=== PATIENT | male | born 1965 | race Caucasian/White ===

== ENCOUNTER → 2022-01-19 | Outpatient (CLI) | payer BC ==
[~2022-01-19] MED LIST: CIPR500 PO; CLIN300 PO; CYCL10 PO; HYDACE5 PO; IBUP600 PO; KETO10 PO; METO10 PO; METR500 PO; MORP15ER PO; MORP60ER PO; ONDA4 PO; OXYACE5T PO; OXYC5 PO; PROM25 PO; Protonix40 MG PO; RXOXYACE PO; RXPROM25 PO
[2022-01-19 10:33] LABS: BASOPHILS ABSOLUTE AUTO 0.01 K/mm3 (0.00-0.23); BASOPHILS PERCENT AUTO 0 % (0-2); EOSINOPHILS ABSOLUTE AUTO 0.06 K/mm3 (0.00-0.68); EOSINOPHILS PERCENT AUTO 1 % (0-6); Hematocrit 46.2 % (37.0-53.0); Hemoglobin 16.3 g/dL (13.5-17.5); IMMATURE GRAN ABSOLUTE AUTO 0.04 K/mm3 (0.00-0.10); IMMATURE GRAN PERCENT AUTO 1 % (0-1); LYMPHOCYTES PERCENT AUTO 22 % (21-46); MONOCYTES ABSOLUTE AUTO 0.34 K/mm3 (0.16-1.47); MONOCYTES PERCENT AUTO 7 % (4-13); Mean Corpuscular HGB 30.4 pg (26.0-34.0); Mean Corpuscular HGB Conc 35.3 g/dL (31.5-36.5); Mean Corpuscular Volume 86 fL (80-100); Mean Platelet Volume 11.4 fL (9.1-12.4); NEUTROPHILS ABSOLUTE AUTO 3.48 K/mm3 (1.96-9.15); NEUTROPHILS PERCENT AUTO 69 % (41-73); Platelet Count 141 K/mm3 (150-400); RDW Coefficient Variation 12.7 % (11.7-14.2); Red Blood Cell Count 5.37 M/mm3 (4.30-5.90); White Blood Cell Count 5.03 K/mm3 (4.00-11.30)
[2022-01-19 10:37] LABS: Albumin, Blood 3.5 g/dL (3.4-5.0); Albumin/Globulin Ratio 0.9 (0.8-1.8); Bilirubin, Total 1.1 mg/dL (0.1-1.0); Bun/Creatinine Ratio 14.7 (12.0-20.0); Calcium, Blood 8.5 mg/dL (8.5-10.1); Creatinine, Blood 1.02 mg/dL (0.60-1.20); Globulin, Blood 3.9 g/dL (2.2-4.0); Potassium, Blood 4.7 mmol/L (3.5-5.5); Total Protein, Blood 7.4 g/dL (6.4-8.2)
== END ==
LOC: LAB SHORT 10:21 → LAB 10:21
PROVIDERS: Physician Assistant Medical
DX: E11.9 Type 2 diabetes mellitus without complications (principal)
CPT/HCPCS: 80053; 83036; 85025

== ENCOUNTER 2024-07-20 14:23 | Emergency (ER) | payer BC ==
[~2024-07-20] VITALS: Ht 177.8 cm; Wt 120.2 kg
[2024-07-20 15:38] LABS: Influenza A, PCR NEGATIVE (NEGATIVE); Influenza B, PCR NEGATIVE (NEGATIVE); Resp Syncytial Virus, PCR NEGATIVE (NEGATIVE); SARS-Cov-2 (COVID-19) PCR, MMC NEGATIVE (NEGATIVE)
[2024-07-20] MEDS ORDERED: Diazepam 5 MG Tab PO ONE (17:15)
[2024-07-20 17:41] VITALS: BP 151/80
== END 2024-07-20 17:41 | disposition home or self-care (01) ==
LOC: ER 14:23
PROVIDERS: Physician Assistant
DX: E87.20 Acidosis, unspecified (principal); F10.90 Alcohol use, unspecified, uncomplicated; F17.210 Nicotine dependence, cigarettes, uncomplicated; Z86.19 Personal history of other infectious and parasitic diseases; Z79.84 Long term (current) use of oral hypoglycemic drugs; Z79.899 Other long term (current) drug therapy
CPT/HCPCS: 0241U; 83605; 99284-25; A9270

== ENCOUNTER → 2024-07-20 | Outpatient (CLI) | payer BC ==
[~2024-07-20] MED LIST changes: +HYDCHL50; +METF500; +[UNRECOGNIZED DRUG - OTHER]
[2024-07-20 11:50] LABS: BASOPHILS ABSOLUTE AUTO 0.01 K/mm3 (0.00-0.23); BASOPHILS PERCENT AUTO 0 % (0-2); EOSINOPHILS ABSOLUTE AUTO 0.04 K/mm3 (0.00-0.68); EOSINOPHILS PERCENT AUTO 1 % (0-6); Hematocrit 46.5 % (37.0-53.0); Hemoglobin 15.8 g/dL (13.5-17.5); IMMATURE GRAN ABSOLUTE AUTO 0.02 K/mm3 (0.00-0.10); IMMATURE GRAN PERCENT AUTO 1 % (0-1); LYMPHOCYTES ABSOLUTE AUTO 1.06 K/mm3 (0.84-5.20); LYMPHOCYTES PERCENT AUTO 35 % (21-46); MONOCYTES ABSOLUTE AUTO 0.24 K/mm3 (0.16-1.47); MONOCYTES PERCENT AUTO 8 % (4-13); Mean Corpuscular HGB 28.9 pg (26.0-34.0); Mean Corpuscular Volume 85 fL (80-100); NEUTROPHILS ABSOLUTE AUTO 1.69 K/mm3 (1.96-9.15); NEUTROPHILS PERCENT AUTO 55 % (41-73); RDW Coefficient Variation 14.1 % (11.7-14.2); RDW Standard Deviation 43.8 fL (35.1-46.3); Red Blood Cell Count 5.47 M/mm3 (4.30-5.90); White Blood Cell Count 3.06 K/mm3 (4.00-11.30)
[2024-07-20 12:03] LABS: Albumin, Blood 4.4 g/dL (3.4-5.0); Bilirubin, Total 1.6 mg/dL (0.1-1.0); Bun/Creatinine Ratio 10.5 (12.0-20.0); Calcium, Blood 8.7 mg/dL (8.5-10.1); Creatinine, Blood 0.86 mg/dL (0.60-1.20); Globulin, Blood 4.2 g/dL (2.2-4.0); Potassium, Blood 3.8 mmol/L (3.5-5.5); Total Protein, Blood 8.6 g/dL (6.4-8.2)
[2024-07-20 12:09] LABS: Mean Platelet Volume 10.3 fL (9.1-12.4)
== END | disposition home or self-care (01) ==
LOC: LAB SHORT 11:46 → LAB 11:46
PROVIDERS: Physician Assistant
DX: R11.2 Nausea with vomiting, unspecified (principal)
CPT/HCPCS: 80053; 82248; 83605; 83690; 85025

== ENCOUNTER 2024-07-29 15:49 | Inpatient (IN) | payer BC ==
[~2024-07-29] VITALS: Ht 177.8 cm; Wt 115.5 kg
[2024-07-29 16:37] LABS: BASOPHILS ABSOLUTE AUTO 0.02 K/mm3 (0.00-0.23); BASOPHILS PERCENT AUTO 1 % (0-2); EOSINOPHILS ABSOLUTE AUTO 0.01 K/mm3 (0.00-0.68); EOSINOPHILS PERCENT AUTO 0 % (0-6); Hematocrit 44.3 % (37.0-53.0); Hemoglobin 15.1 g/dL (13.5-17.5); IMMATURE GRAN ABSOLUTE AUTO 0.01 K/mm3 (0.00-0.10); IMMATURE GRAN PERCENT AUTO 0 % (0-1); LYMPHOCYTES ABSOLUTE AUTO 1.22 K/mm3 (0.84-5.20); LYMPHOCYTES PERCENT AUTO 42 % (21-46); MONOCYTES ABSOLUTE AUTO 0.37 K/mm3 (0.16-1.47); MONOCYTES PERCENT AUTO 13 % (4-13); Mean Corpuscular HGB 29.4 pg (26.0-34.0); Mean Corpuscular HGB Conc 34.1 g/dL (31.5-36.5); Mean Corpuscular Volume 86 fL (80-100); NEUTROPHILS ABSOLUTE AUTO 1.31 K/mm3 (1.96-9.15); NEUTROPHILS PERCENT AUTO 45 % (41-73); RDW Coefficient Variation 14.2 % (11.7-14.2); Red Blood Cell Count 5.14 M/mm3 (4.30-5.90); White Blood Cell Count 2.94 K/mm3 (4.00-11.30)
[2024-07-29 17:04] LABS: Albumin, Blood 4.1 g/dL (3.4-5.0); Bilirubin, Total 1.1 mg/dL (0.1-1.0); Calcium, Blood 9.1 mg/dL (8.5-10.1); Creatinine, Blood 0.67 mg/dL (0.60-1.20); Globulin, Blood 4.1 g/dL (2.2-4.0); Potassium, Blood 3.9 mmol/L (3.5-5.5); Total Protein, Blood 8.2 g/dL (6.4-8.2)
[2024-07-29] MEDS ORDERED: PHENobarbitaL sodium 130 MG/ML VIAL IV ONE ×3 (17:30→19:50)
[2024-07-29] MEDS ORDERED: Lactated Ringer's 1,000 ML IV ONE (17:35)
[2024-07-29] MEDS ORDERED: Ondansetron HCl 2 MG / ML 2ML Vial IV ONE (17:35)
[2024-07-29] MEDS ORDERED: ChlordiazePOXIDE 25 MG Cap PO PRN ×2 (21:05→21:10)
[2024-07-29] MEDS ORDERED: Ondansetron HCl 2 MG / ML 2ML Vial IV PRN (21:05)
[2024-07-29] MEDS ORDERED: LORazepam 2 MG/ML 1ML Injection IV PRN ×2 (21:10)
[2024-07-29] MEDS ORDERED: FLU VACC TS2024-25(6MOS UP)/PF 45 MCG/0.5 ML SYRINGE IM ONE (21:10)
[2024-07-29] MEDS ORDERED: Lactated Ringer's 1,000 ML IV SCH (21:10)
[2024-07-29 21:15] LABS: Magnesium, Blood 1.6 mg/dL (1.6-2.4)
[2024-07-29 22:23] VITALS: BP 167/115
[2024-07-29 23:32] VITALS: BP 152/96
--- NOTE | 2024-07-29 23:44 | NUR ---
ADMISSION NOTE. PT ARRIVED ON UNIT AT ABOUT ~2215. AOX4, PLEASANT, COOPERATIVE WITH CARE. SOMEWHAT ANXIOUS. ADMITTED FOR ALCOHOL WITHDRAWAL. DENIES PAIN. CIWA 8 ON ADMISSION, ADMINISTERED 25 MG LIBRIUM. ADMINISTERED FLU SHOT PER PT REQUEST. VITALS STABLE. MAINTAINING ADEQUATE SATURATION ON 2 L O2 VIA NC. SBA TRANSFER TO BATHROOM. ADMISSION PROCESS COMPLETED PER PROTOCOL. RUNNING SINUS TACH ON TELE. BED ALARM ACTIVE FOR SAFETY, EDUCATED VENEER DRIER LIGHT USE. BED LOCKED IN LOWEST POSITION. CALL LIGHT LEFT WITHIN REACH. CONTINUING TO MONITOR.
[2024-07-30] VITALS (7 sets, daily range): BP systolic 143–166; BP diastolic 84–102
[2024-07-30] MEDS ORDERED: ChlordiazePOXIDE 25 MG Cap PO PRN (01:00)
[2024-07-30 03:59] LABS: Hemoglobin 13.9 g/dL (13.5-17.5); Mean Corpuscular HGB 29.6 pg (26.0-34.0); Mean Corpuscular HGB Conc 33.9 g/dL (31.5-36.5); Mean Corpuscular Volume 87 fL (80-100); Mean Platelet Volume 10.9 fL (9.1-12.4); Platelet Count 61 K/mm3 (150-400); RDW Coefficient Variation 14.3 % (11.7-14.2); RDW Standard Deviation 45.5 fL (35.1-46.3); Red Blood Cell Count 4.69 M/mm3 (4.30-5.90); White Blood Cell Count 2.35 K/mm3 (4.00-11.30)
[2024-07-30 04:18] LABS: Magnesium, Blood 1.5 mg/dL (1.6-2.4)
[2024-07-30 04:19] LABS: Albumin, Blood 3.9 g/dL (3.4-5.0); Albumin/Globulin Ratio 1.1 (0.8-1.8); Bilirubin, Total 1.7 mg/dL (0.1-1.0); Bun/Creatinine Ratio 21.6 (12.0-20.0); Calcium, Blood 8.6 mg/dL (8.5-10.1); Creatinine, Blood 0.65 mg/dL (0.60-1.20); Globulin, Blood 3.5 g/dL (2.2-4.0); Total Protein, Blood 7.4 g/dL (6.4-8.2)
--- NOTE | 2024-07-30 05:29 | NUR ---
SPOKE WITH DR. ADAME REGARDING LOW MAGNESIUM ON MORNING LABS. ALSO NOTIFIED OF DROP IN SODIUM. WENDI ORDERED 2 G MAGNESIUM IV NOW. ORDER INPUT AWAITING VERIFICATION.
[2024-07-30] MEDS ORDERED: Magnesium Sulf 2 GM/Water 50ML 50 ML IV ONE (05:30)
--- NOTE | 2024-07-30 06:04 | NUR ---
SHIFT SUMMARY. SHIFT HAS BEEN UNEVENTFUL OVERALL. PT AOX4, PLEASANT, COOPERATIVE WITH CARE. CIWAS HAVE BEEN =<8 THROUGHOUT SHIFT THUS FAR. HAS DENIED PAIN THROUGHOUT SHIFT. LR RUNNING SINCE ARRIVAL. HAVE MEDICATED TWICE PER CIWA PROTOCOL THUS FAR. STEADY 1PA TRANSFER TO CHAIR AND BACK TO BED. IMPULSIVE AT TIMES BUT ONLY VERY SPORADICALLY AND MORE CONSISTENTLY CALLS APPROPRIATELY FOR ASSISTANCE. BED LOCKED IN LOWEST POSITION. CALL LIGHT LEFT WITHIN REACH. CONTINUING TO MONITOR.
[2024-07-30] MEDS ORDERED: Folic Acid 1 MG TAB PO SCH (09:00)
[2024-07-30] MEDS ORDERED: Enoxaparin 40 MG/0.4 ML SYR SC SCH (09:00)
[2024-07-30] MEDS ORDERED: Multivitamins 1 Tab PO SCH (09:00)
[2024-07-30] MEDS ORDERED: Thiamine HCl 100 MG Tab PO SCH (09:00)
--- NOTE | 2024-07-30 10:34 | NUR ---
am note this rn assumed care at 0700. vital signs stable. tele sinus rhythm sinus tach 90s-100s. spo2 >90% on 2l nc. patient since then has been titrated to room air and is tolerating well with spo2 >90%. patient is alert and orineted x4. neuro is intact. ciwa score 8 and 11 this monring. patient is able to make needs known and uses call light appropriately. denies pain, chest pain/pressure or shortness of breath. see shift assessment for further detials. Md Hernandezan in to see patient and discuss plan of care. plan to continue to monitor for ciwa and medicated as needed.
[2024-07-30] MEDS ORDERED: Losartan Potassium 25 MG Tab PO SCH (15:35)
[2024-07-30] MEDS ORDERED: Insulin Human Lispro 100 Units/ML 3ML Syringe SC SCH (16:30)
--- NOTE | 2024-07-30 17:34 | NUR ---
shift summary patient blood pressure hypertensive and started on losartan. patient neuro remains unchanged. ciwa range from 6-11. patient able to ambulate to the bathroom with a standby assist. no acute changes this shift. plan remains up to date
[2024-07-30] MEDS ORDERED: Omeprazole 20 MG CapCR PO SCH ×2 (18:20→18:35)
--- NOTE | 2024-07-30 18:50 | NUR ---
DENTURES dentures soaking in denture cup on bedside table, both upper and lower, with patient label on denture cup lid.
[2024-07-31 03:24] VITALS: BP 134/99
[2024-07-31 04:26] LABS: BASOPHILS ABSOLUTE AUTO 0.01 K/mm3 (0.00-0.23); BASOPHILS PERCENT AUTO 1 % (0-2); EOSINOPHILS ABSOLUTE AUTO 0.03 K/mm3 (0.00-0.68); EOSINOPHILS PERCENT AUTO 2 % (0-6); Hematocrit 40.8 % (37.0-53.0); Hemoglobin 13.3 g/dL (13.5-17.5); IMMATURE GRAN ABSOLUTE AUTO 0.01 K/mm3 (0.00-0.10); IMMATURE GRAN PERCENT AUTO 1 % (0-1); LYMPHOCYTES ABSOLUTE AUTO 0.56 K/mm3 (0.84-5.20); LYMPHOCYTES PERCENT AUTO 29 % (21-46); MONOCYTES ABSOLUTE AUTO 0.28 K/mm3 (0.16-1.47); MONOCYTES PERCENT AUTO 14 % (4-13); Mean Corpuscular HGB 28.9 pg (26.0-34.0); Mean Corpuscular HGB Conc 32.6 g/dL (31.5-36.5); Mean Corpuscular Volume 89 fL (80-100); NEUTROPHILS ABSOLUTE AUTO 1.07 K/mm3 (1.96-9.15); NEUTROPHILS PERCENT AUTO 55 % (41-73); RDW Coefficient Variation 13.9 % (11.7-14.2); RDW Standard Deviation 44.9 fL (35.1-46.3); White Blood Cell Count 1.96 K/mm3 (4.00-11.30)
[2024-07-31 04:31] LABS: Platelet Count 50 K/mm3 (150-400)
--- NOTE | 2024-07-31 04:35 | NUR ---
SHIFT SUMMARY. SHIFT HAS GONE WELL OVERALL. PT HAS BEEN AOX4, PLEASANT, COOPERATIVE, REDIRECTABLE THROUGHOUT SHIFT. OFTEN IMPULSIVE OOB, MORESO THAN PREVIOUS SHIFT WITH THIS RN BUT REMAINS VERY REDIRECTABLE AND COOPERATIVE. URINE OUTPUT CONSISTENT, CHARTED APPROPRIATELY. DENIED PAIN THROUGHOUT SHIFT OUTSIDE OF HEADACHE ASSOCIATED WITH WITHDRAWALS. MEDICATED PER CIWA PROTOCL PRN. CONTINUES TO RUN SINUS ON TELE. MAINTAINS ADEQUATE SATURATION ON ROOM AIR WHILE AWAKE, 2 L O2 VIA NC WHILE SLEEPING. CIWAs HAVE RANGED BETWEEN 5-13 THROUGHOUT SHIFT. BED LOCKED IN LOWEST POSITION. CALL LIGHT LEFT WITHIN REACH. CONTINUING TO MONITOR.
[2024-07-31 04:48] LABS: Alanine Aminotransfer (ALT/SGP 99 U/L (12-78); Albumin, Blood 3.6 g/dL (3.4-5.0); Alk Phos 90 U/L (50-136); Anion Gap 7 mmol/L (3-11); Aspartate Aminotrans (AST/SGOT 162 U/L (12-37); Bilirubin, Total 1.3 mg/dL (0.1-1.0); Blood Urea Nitrogen 11 mg/dL (8-24); Bun/Creatinine Ratio 17.4 (12.0-20.0); CHOL/HDL RATIO 3.2; CO2, Blood 32 mmol/L (21-32); Chloride, Blood 100 mmol/L (98-108); Cholesterol 195 mg/dL (50-200); Creatinine, Blood 0.63 mg/dL (0.60-1.20); Globulin, Blood 3.6 g/dL (2.2-4.0); Glomerular Filtration Rate 108 (60-); Glucose, Blood 124 mg/dL (70-99); HDL Cholesterol 61 mg/dL (>39); LDL/HDL RATIO 1.8; Low Density Lipoprotein Chol 107 mg/dL (0-110); Potassium, Blood 4.1 mmol/L (3.5-5.5); Sodium, Blood 135 mmol/L (136-145); Total Protein, Blood 7.2 g/dL (6.4-8.2); Triglycerides 133 mg/dL (30-160); Very Low Density Lipoprot Chol 26 mg/dL (6-32)
[2024-07-31 08:42] VITALS: BP 148/100
[2024-07-31] MEDS ORDERED: Losartan Potassium 25 MG Tab PO SCH (09:00)
--- NOTE | 2024-07-31 10:06 | NUR ---
am note this rn assumed care at 0700. vital signs stable. spo2 >90% on room air. patient is alert and oriented x4. neuro is intact. ciwa is 4 this morning. patient is able to make needs known. patient denies pain, chest pain/pressure or shortness of breath. see shift assessment for further detials. patient had a shower this morning and linen changed. md deanan in to see patient and patient switched medical status with tele.
[2024-07-31] MEDS ORDERED: Nicotine 14 MG PATCH TOP SCH (12:15)
--- NOTE | 2024-07-31 12:30 | NUR ---
UPDATE patient is medical status with tele and patient will be moving to room 361. this rn called Scarlett his friend and updated her on patient new room.
--- NOTE | 2024-07-31 12:41 | NUR ---
update-transfer of care this rn gave report to xochitl bajwa on medical floor. patient is moving to room 362. patient left with all belongings and in no distress. patient recent ciwa 8. patient has nicotine patch on left shoulder that was put on this afternoon. no acute changes since previous notes. plan remains up to date.
--- NOTE | 2024-07-31 12:45 | NUR ---
update to friend this rn called roma to update on room change to 362.
[2024-07-31 12:56] VITALS: BP 133/87
--- NOTE | 2024-07-31 12:59 | NUR ---
TRANSFER NOTE: PATIENT ARRIVED THE UNIT VIA WHEELCHAIR AT 1250; WAS ABLE TO SELF TRANSFER TO THE BED; PATIENT SETTLED IN ROOM, CALL LIGHT PROVIDED, VITALS OBTAINED, IV ASSESSED. NO SIGNS OR SYMPTOMS OF DISTRESS, PLAN OF CARE ONGOING.
[2024-07-31 16:04] VITALS: BP 155/102
[2024-07-31 16:57] VITALS: BP 142/96
--- NOTE | 2024-07-31 18:20 | NUR ---
SHIFT SUMMARY: PATIENT HAS BEEN PLEASANT AND COOPERATIVE WITH CARE. HIS CIWAS 9 FOR ME SINCE BEING ON THE FLOOR; MEDICATING NEEDED. PATIENT WENT ON A WALK WITH FAMILY TODAY WITH THE FWW. EDUCATED ON THE IMPORTANCE OF STAYING IN THE HOSPITAL WHILE GOING THROUGH ALCOHOL WITHDRAWAL; PATIENT VOICES UNDERSTANDING. HE IS IN BED, ALERT, CALL LIGHT WITHIN REACH, NO SIGNS OR SYMTOMS OF DISTRESS, OR EVENTS ON TELE, PLAN OF CARE ONGOING.
[2024-07-31 20:06] VITALS: BP 136/86
[2024-08-01 00:25] VITALS: BP 135/97
[2024-08-01 04:35] VITALS: BP 131/105
--- NOTE | 2024-08-01 05:05 | NUR ---
SHIFT SUMMARY NOC PT A/O X 4. PLEASANT AND COOPERATIVE WITH CARE. VSS. HS CBG 211 CNI. PT HAD 2 CIWA SCORES 9 AND 10 THAT PT RECEIVED LIBRIUM 50 MG WHICH HELPED TO RELIEVE ETOH WD SYMPTOMS. PT ON TELE SINUS RHYTHM 80'S. PT IS WAITING FOR ENROLLMENT IN ADAPT FOR DISCHARGE. PT CURRENTLY RESTING WITH BED IN LOWEST POSITION, AND CALL LIGHT WITHIN REACH.
[2024-08-01 05:18] LABS: BASOPHILS ABSOLUTE AUTO 0.01 K/mm3 (0.00-0.23); BASOPHILS PERCENT AUTO 1 % (0-2); EOSINOPHILS ABSOLUTE AUTO 0.04 K/mm3 (0.00-0.68); EOSINOPHILS PERCENT AUTO 2 % (0-6); Hematocrit 39.2 % (37.0-53.0); Hemoglobin 12.8 g/dL (13.5-17.5); IMMATURE GRAN ABSOLUTE AUTO 0.01 K/mm3 (0.00-0.10); IMMATURE GRAN PERCENT AUTO 1 % (0-1); LYMPHOCYTES ABSOLUTE AUTO 0.45 K/mm3 (0.84-5.20); LYMPHOCYTES PERCENT AUTO 24 % (21-46); MONOCYTES ABSOLUTE AUTO 0.23 K/mm3 (0.16-1.47); MONOCYTES PERCENT AUTO 12 % (4-13); Mean Corpuscular HGB 29.2 pg (26.0-34.0); Mean Corpuscular HGB Conc 32.7 g/dL (31.5-36.5); Mean Corpuscular Volume 90 fL (80-100); Mean Platelet Volume 12.2 fL (9.1-12.4); NEUTROPHILS ABSOLUTE AUTO 1.14 K/mm3 (1.96-9.15); NEUTROPHILS PERCENT AUTO 61 % (41-73); Platelet Count 51 K/mm3 (150-400); RDW Coefficient Variation 13.6 % (11.7-14.2); RDW Standard Deviation 44.8 fL (35.1-46.3); Red Blood Cell Count 4.38 M/mm3 (4.30-5.90); White Blood Cell Count 1.88 K/mm3 (4.00-11.30)
[2024-08-01 05:45] LABS: Bun/Creatinine Ratio 15.3 (12.0-20.0); Calcium, Blood 9.4 mg/dL (8.5-10.1); Creatinine, Blood 0.72 mg/dL (0.60-1.20); Potassium, Blood 3.8 mmol/L (3.5-5.5)
[2024-08-01 07:38] VITALS: BP 133/95
[2024-08-01 12:12] VITALS: BP 109/87
[2024-08-01 16:28] VITALS: BP 128/82
--- NOTE | 2024-08-01 18:24 | NUR ---
SUMMARY- AAOX4 THIS SHIFT. CIWA= 8, 10, 13 THIS SHIFT. PT WALKED THE HALLS THIS SHIFT WITH WALKER. GOOD APPETITE. NO COMPLAINTS OF PAIN. PT ON RA. SBA.
[2024-08-01 20:12] VITALS: BP 124/81
[2024-08-01] MEDS ORDERED: Calcium Carbonate 500 MG Tab Chew PO PRN (20:20)
[2024-08-02] VITALS (8 sets, daily range): BP systolic 116–138; BP diastolic 73–96
--- NOTE | 2024-08-02 02:30 | NUR ---
WAS IN ROOM 363 HELPING PLATFORM ARCHITECT GET TEMP ON PT AND HEARD CRASH COME FROM ROOM 362, PT FOUND DOWN ON GROUND FROM UNWITNESSED FALL. PT DENIES HITTING HEAD AND HAS BRUISES BETWEEN SHOULDER BLADES AND ON R HIP. UNWITNESSED FALL NEURO PROTOCOL INTITIAED. VSS. HOSPITALIST NOTIFIED AND NO IMAGING ORDERED AND ORDERS TO CONTINUE MONITORING PT PER FALL PROTOCOL.
[2024-08-02 05:25] LABS: BASOPHILS ABSOLUTE AUTO 0.02 K/mm3 (0.00-0.23); BASOPHILS PERCENT AUTO 1 % (0-2); EOSINOPHILS ABSOLUTE AUTO 0.04 K/mm3 (0.00-0.68); EOSINOPHILS PERCENT AUTO 1 % (0-6); Hematocrit 39.7 % (37.0-53.0); Hemoglobin 13.2 g/dL (13.5-17.5); IMMATURE GRAN ABSOLUTE AUTO 0.01 K/mm3 (0.00-0.10); IMMATURE GRAN PERCENT AUTO 0 % (0-1); LYMPHOCYTES ABSOLUTE AUTO 0.63 K/mm3 (0.84-5.20); LYMPHOCYTES PERCENT AUTO 22 % (21-46); MONOCYTES ABSOLUTE AUTO 0.39 K/mm3 (0.16-1.47); MONOCYTES PERCENT AUTO 14 % (4-13); Mean Corpuscular HGB 29.6 pg (26.0-34.0); Mean Corpuscular HGB Conc 33.2 g/dL (31.5-36.5); Mean Corpuscular Volume 89 fL (80-100); Mean Platelet Volume 11.2 fL (9.1-12.4); NEUTROPHILS ABSOLUTE AUTO 1.75 K/mm3 (1.96-9.15); NEUTROPHILS PERCENT AUTO 62 % (41-73); Platelet Count 67 K/mm3 (150-400); RDW Coefficient Variation 13.7 % (11.7-14.2); Red Blood Cell Count 4.46 M/mm3 (4.30-5.90); White Blood Cell Count 2.84 K/mm3 (4.00-11.30)
[2024-08-02 05:57] LABS: Albumin, Blood 3.5 g/dL (3.4-5.0); Bilirubin, Total 1.3 mg/dL (0.1-1.0); Bun/Creatinine Ratio 22.2 (12.0-20.0); Calcium, Blood 9.5 mg/dL (8.5-10.1); Creatinine, Blood 0.68 mg/dL (0.60-1.20); Globulin, Blood 3.6 g/dL (2.2-4.0); Potassium, Blood 3.7 mmol/L (3.5-5.5); Total Protein, Blood 7.1 g/dL (6.4-8.2)
--- NOTE | 2024-08-02 06:09 | NUR ---
SHIFT SUMMARY NOC PT A/O X 3. PLEASANT AND COOPERTIVE WITH CARE. VSS. CIWA 11 @ 1999 AND GIVEN LIBRIUM, OTHER CIWA <5. PT HAD UNWITNESSED FALL @ 129, PT ASSESSED AND DENIED HITTING HEAD. NEURO CHECKS/VSS. HOSPITALIST NOTIFIED AND NO ADDITIONAL ORDERS GIVEN BESIDES TO CONTINUE NEURO POST FALL PROTOCOL. PT SUSTAINED BRUISING TO R HIP, AND BETWEEN SHOULDER BLADES. PT NOW HAS BED ALARM IN PLACE AND USING CALL LIGHT FOR ASSISTENCE WHEN GETTING UP. PT ON TELE SINUS TACH IN LOW 100'S. PT CURRENTLY RESTING WITH BED ALARM ON, BED IN LOWEST POSITION, AND CALL LIGHT WITHIN REACH.
--- NOTE | 2024-08-02 18:26 | NUR ---
SUMMARY- PT AAOX4. SLOW TO RESPOND. PT MEDICATED TWICE THIS SHIFT FOR CIWA SCORES. X1 ASSIST. NO COMPLAINTS OF PAIN. PT RETAINING THIS SHIFT. BLADDER SCAN SHOWED 758ML, STRAIGHT CATHED PT; 850ML DRAINED. PT ON RA.
[2024-08-03 00:20] VITALS: BP 105/67
[2024-08-03 04:37] LABS: Hematocrit 40.6 % (37.0-53.0); Hemoglobin 13.6 g/dL (13.5-17.5); Mean Corpuscular HGB 29.8 pg (26.0-34.0); Mean Corpuscular HGB Conc 33.5 g/dL (31.5-36.5); Mean Corpuscular Volume 89 fL (80-100); Mean Platelet Volume 11.3 fL (9.1-12.4); Platelet Count 93 K/mm3 (150-400); RDW Coefficient Variation 13.9 % (11.7-14.2); RDW Standard Deviation 45.1 fL (35.1-46.3); Red Blood Cell Count 4.57 M/mm3 (4.30-5.90); White Blood Cell Count 3.18 K/mm3 (4.00-11.30)
[2024-08-03 04:46] VITALS: BP 117/73
[2024-08-03 04:59] LABS: Magnesium, Blood 1.9 mg/dL (1.6-2.4)
--- NOTE | 2024-08-03 04:59 | NUR ---
SHIFT SUMMARY - NO ACUTE CHANGES THROUOGHOUT THE NIGHT. PT MEDICATED X1 WITH LIBRIUM PO FOR CIWA PROTOCOL - SEE EMAR. PT REPORTS BMX3 YESTERDAY. PO FLUIDS AT BEDSIDE. BED ALARM ON FOR SAFETY. PT IS ABLE TO MAKE HIS NEEDS KNOWN, AND HE REPOSITIONS SELF IN BED. CALL LIGHT WITHIN REACH. BED IN LOW POSITION. WILL REPORT OFF TO ONCOMING SHIFT. POTENTIAL FOR DC TODAY.
[2024-08-03 05:00] LABS: Albumin, Blood 3.5 g/dL (3.4-5.0); Albumin/Globulin Ratio 0.9 (0.8-1.8); Bilirubin, Total 1.2 mg/dL (0.1-1.0); Bun/Creatinine Ratio 19.2 (12.0-20.0); Calcium, Blood 9.2 mg/dL (8.5-10.1); Creatinine, Blood 0.73 mg/dL (0.60-1.20); Globulin, Blood 3.7 g/dL (2.2-4.0); Potassium, Blood 3.9 mmol/L (3.5-5.5); Total Protein, Blood 7.2 g/dL (6.4-8.2)
[2024-08-03 05:11] LABS: BAND PERCENT MAN 7 % (0-8); BASOPHILS PERCENT MAN 0 % (0-2); EOSINOPHILS ABSOLUTE MAN 0.03 K/mm3 (0.00-0.68); EOSINOPHILS PERCENT MAN 1 % (0-6); LYMPHOCYTES % ATYPICAL MANUAL 3 % (0-0); LYMPHOCYTES ABSOLUTE MAN 0.73 K/mm3 (0.84-5.20); LYMPHOCYTES PERCENT MAN 20 % (21-46); MONOCYTES ABSOLUTE MAN 0.41 K/mm3 (0.16-1.47); MONOCYTES PERCENT MAN 13 % (4-13); SEG NEUTROPHILS PERCENT MAN 56 % (41-73); TOTAL CELLS COUNTED 100
[2024-08-03 07:21] VITALS: BP 145/95
[2024-08-03 11:15] VITALS: BP 124/85
[2024-08-03] MEDS ORDERED: NICODERM CQ1 EA11 TOP (15:56)
[2024-08-03] MEDS ORDERED: LOSA25 PO (15:56)
[2024-08-03] MEDS ORDERED: OMEP20ER PO (15:57)
--- NOTE | 2024-08-03 16:09 | NUR ---
PATIENT DISCHARGD AT 1606. FAMILY WAS AT THE BEDSIDE WHEN DISCHARGE INFORMATION WAS GIVEN TO THE PATIENT. FAMILY PUSHED HIM OUT IN A WHEELCHAIR. IV DISCONINUED
== END 2024-08-03 16:07 | disposition home health service (06) | DRG 897 ==
LOC: ER 15:49 → PCU 15:50 → MEDS 07-31 12:50
PROVIDERS: Family Medicine; Internal Medicine; Nurse Practitioner Acute Care; Physician Assistant; ADMIT Internal Medicine
PROC: HZ2ZZZZ Detoxification Services for Substance Abuse Treatment (ICD-10-PCS; principal; 2024-07-29)
PROC: 3E02340 Introduction of Influenza Vaccine into Muscle, Percutaneous Approach (ICD-10-PCS; 2024-07-29)
DX: F10.239 Alcohol dependence with withdrawal, unspecified (principal); E87.1 Hypo-osmolality and hyponatremia; D61.818 Other pancytopenia; E87.20 Acidosis, unspecified; B19.20 Unspecified viral hepatitis C without hepatic coma; R74.01 Elevation of levels of liver transaminase levels; I10 Essential (primary) hypertension; E83.42 Hypomagnesemia; K76.0 Fatty (change of) liver, not elsewhere classified; E74.39 Other disorders of intestinal carbohydrate absorption; E78.5 Hyperlipidemia, unspecified; F17.210 Nicotine dependence, cigarettes, uncomplicated; K70.10 Alcoholic hepatitis without ascites; D69.6 Thrombocytopenia, unspecified; Z71.6 Tobacco abuse counseling; D64.9 Anemia, unspecified; K21.9 Gastro-esophageal reflux disease without esophagitis; Z71.41 Alcohol abuse counseling and surveillance of alcoholic; Z98.890 Other specified postprocedural states; Z79.899 Other long term (current) drug therapy; Y90.7 Blood alcohol level of 200-239 mg/100 ml; Z23 Encounter for immunization
CPT/HCPCS: 36415; 74177; 80048; 80053; 80061; 80320; 82947; 83036; 83690; 83735; 85025; 85027; 90656; 93005; 93010; 94760; 96361; 96372; 96374; 96375; 96376; 97116; 97162; 97530; 99285-25; A9270; G0378; J1650; J2060; J2405; J2560; J3475; J7120; Q9967